=== PATIENT | male | born 1965 | race Caucasian/White ===

== ENCOUNTER → 2018-06-15 14:18 | Outpatient (CLI) | payer BC | END | disposition home or self-care (01) | LOC: D.CT 14:18 | DX: R10.9 Unspecified abdominal pain (principal) ==

== ENCOUNTER → 2018-06-30 09:07 | Outpatient (CLI) | payer BC | END | disposition home or self-care (01) | LOC: D.NM 09:07 | DX: R10.11 Right upper quadrant pain (principal) ==

== ENCOUNTER 2018-07-26 06:03 | Day surgery (SDC) | payer BC ==
[~2018-07-26] VITALS: Ht 182.9 cm; Wt 88.5 kg
[~2018-07-26 06:03] MED LIST: CENTRUM MEN'S1 EACH PO; PROTONIX40 MG PO
[2018-07-26 06:50] VITALS: BP 116/79; Ht 182.9 cm; Wt 88.5 kg
[2018-07-26] MEDS ORDERED: PERCOCET 5-3251 TAB PO (09:30)
== END 2018-07-26 11:40 | disposition home or self-care (01) ==
LOC: D.OPS 06:03 → D.PAN 08:00 → D.OPS 08:15
DX: K82.8 Other specified diseases of gallbladder (principal); Z72.0 Tobacco use